=== PATIENT | female | born 1970 | race Two or more races ===

== ENCOUNTER 2017-03-08 09:54 | Emergency (ER) | payer SELFPAY ==
[2017-03-08 10:02] VITALS: BP 133/94; PULSE 81; RESP 20; TEMP 97.9; O2SAT 99
[2017-03-08] MEDS ORDERED: Naproxen 550 mg Tab PO STA (10:06)
--- NOTE | 2017-03-08 10:46 | C.PDOC ---
History Of Present Illness 46 y/o female presents to ED with complaints of left ankle pain since yesterday. Patient states she tripped and fell yesterday, pain worsens with ambulation/weight bearing. Patient denies head injury, loc, sensory changes, redness. Time Seen by Provider: 03/08/17 10:02 Chief Complaint (Nursing): Lower Extremity Problem/Injury History Per: Patient History/Exam Limitations: no limitations Onset/Duration Of Symptoms: Days (2) Current Symptoms Are (Timing): Still Present Severity: Moderate - Ankle/Foot Description Of Injury: Fell, Twisted Past Medical History Reviewed: Historical Data, Nursing Documentation, Vital Signs Vital Signs: Last Vital Signs Temp 97.9 F 03/08/17 09:57 Pulse 81 03/08/17 09:57 Resp 20 03/08/17 09:57 BP 133/94 H 03/08/17 09:57 Pulse Ox 99 03/08/17 10:58 - Medical History PMH: Arthritis, Asthma, HTN Surgical History: Appendectomy Family History: States: No Known Family Hx - Social History Hx Tobacco Use: No Hx Alcohol Use: Yes Hx Substance Use: No - Immunization History Hx Tetanus Toxoid Vaccination: No Hx Influenza Vaccination: No Hx Pneumococcal Vaccination: No Review Of Systems Except As Marked, All Systems Reviewed And Found Negative. Constitutional: Negative for: Fever Cardiovascular: Negative for: Chest Pain, Palpitations Respiratory: Negative for: Shortness of Breath Gastrointestinal: Negative for: Nausea, Vomiting, Diarrhea Musculoskeletal: Positive for: Foot Pain (ankle) Skin: Negative for: Rash Physical Exam - Physical Exam Appears: Well, Non-toxic, Other (In mild pain) Skin: Normal Color, Warm, No Rash Head: Atraumatic, Normacephalic Eye(s): bilateral: Normal Inspection, EOMI Oral Mucosa: Moist Cardiovascular: Rhythm Regular Respiratory: Normal Breath Sounds, No Rales, No Rhonchi, No Wheezing Extremity: Tenderness (Lateral malleolus tender to palpation), No Calf Tenderness, Capillary Refill (<2 seconds all digits ), No Deformity, Swelling ( Left ankle mild swelling at lateral malleolus) Extremity: Left: Normal ROM (decreased ROM left ankle due to pain), Bilateral: Normal Color And Temperature Pulses: Left Dorsalis Pedis: Normal, Right Dorsalis Pedis: Normal Neurological/Psych: Oriented x3, Normal Motor, Normal Sensation ED Course And Treatment O2 Sat by Pulse Oximetry: 99 (RA) Pulse Ox Interpretation: Normal - Other Rad left ankle Xray X-Ray: Viewed By Me, Read By Radiologist Interpretation: Accession No. : [id number]. Patient Name / ID : ALEXX KEYS / [id number]. Exam Date : 03/08/2017 10:07:08 ( Approved ). Study Comment : Sex / Age : F / 46Y. Creator : Michelle Regan MD. Dictator : Egg Worker : Fixture Maker : Michelle Regan MD. Approver2 : Report Date : 03/08/2017 11:17:44. My Comment : . PROCEDURE: Left Ankle Radiographs. HISTORY: left ankle pain s/p fall. COMPARISON: None available. FINDINGS: BONES: No acute displaced fracture. JOINTS: No dislocation. SOFT TISSUES: Marked soft tissue swelling. No evidence of radiopaque foreign body. OTHER FINDINGS: None. IMPRESSION: Marked soft tissue swelling. No acute displaced fracture or dislocation identified. If symptoms persist or if there is clinical concern, x-ray follow-up in 7-10 days should be considered. Progress Note: Patient given PO Naprosen for pain. Xray of left ankle ordered and reviewed - (+) for acute fx/dislocation. Patient placed in kirstin wrap, air cast by medical administrative technician. Crutches and instruction given by PT. Patient instructed to follow up with orthopedics/podiatry within 1 week. She was given Rx for pain medication, and understands she should return to ED if symptoms worsen. Reassessment Condition: Improved Disposition Counseled Patient/Family Regarding: Studies Performed, Diagnosis, Need For Followup, Rx Given - Disposition Referrals: [facility] [Outside] [facility] [Outside] Jose Urena III, MD [Staff Provider] - Disposition: HOME/ ROUTINE Disposition Time: 11:08 Condition: STABLE Additional Instructions: FOLLOW UP WITH ORTHPEDICS/PODIATRY WITHIN 1 WEEK USE PAIN MEDICATION NEEDED ELEVATE ANKLE MUCH POSSIBLE, USE ICE IN FIRST 24 HOURS RETURN TO ER IF SYMPTOMS WORSEN Prescriptions: Naproxen [Naprosyn Tab] 375 mg PO BID PRN #20 tab PRN Reason: pain Instructions: Ankle Sprain (ED), Crutch Instructions (ED), Ankle Stirrup Splint (ED) Forms: [employer] (Panamanian) Print Language: IRISH - POA Present On Arrival: Falls Or Trauma - Clinical Impression Clinical Impression: Left ankle sprain - Scribe Statement The provider has reviewed the documentation as recorded by the Maria Guadalupeiblata Hope All medical record entries made by the Ramya were at my direction and personally dictated by me. I have reviewed the chart and agree that the record accurately reflects my personal performance of the history, physical exam, medical decision making, and the department course for this patient. I have also personally directed, reviewed, and agree with the discharge instructions and disposition.
--- NOTE | 2017-03-08 11:19 | RAD ---
PROCEDURE: Left Ankle Radiographs. HISTORY: left ankle pain s/p fall COMPARISON: None available. FINDINGS: BONES: No acute displaced fracture. JOINTS: No dislocation. SOFT TISSUES: Marked soft tissue swelling. No evidence of radiopaque foreign body. OTHER FINDINGS: None. IMPRESSION: Marked soft tissue swelling. No acute displaced fracture or dislocation identified. If symptoms persist or if there is clinical concern, x-ray follow-up in 7-10 days should be considered.
== END 2017-03-08 11:08 | disposition home or self-care (01) ==
LOC: C.ER 09:54
DX: S93.402A Sprain of unspecified ligament of left ankle, initial encounter (principal); W01.0XXA Fall on same level from slipping, tripping and stumbling without subsequent striking against object, initial encounter; Y93.9 Activity, unspecified; Y92.9 Unspecified place or not applicable
CPT/HCPCS: 73610; 97116; 97161; 99285; G8978; G8979; G8980